=== PATIENT | male | born 1965 | race Caucasian/White ===

== ENCOUNTER 2020-10-09 21:45 | Emergency (ER) | payer OTHER, MEDICAID, SELFPAY ==
[2020-10-09] VITALS (9 sets, daily range): BP systolic 134–181; BP diastolic 78–117; PULSE 79–128; RESP 12–24; TEMP 36.8; O2SAT 96–98
--- NOTE | 2020-10-09 21:52 | DI.RAD.S_ITS ---
PROCEDURE: XR CHEST 2V INDICATIONS: shortness of breath TECHNIQUE: 2 views of the chest were acquired. COMPARISON: None. FINDINGS: Surgical changes and devices: None. Lungs and pleura: Lungs are clear. No pleural effusions or pneumothorax. Lungs are hyperinflated suggesting COPD. Mediastinum: Mediastinal contours are normal. Heart size is normal. Bones and chest wall: No suspicious bony abnormalities. Soft tissues appear unremarkable. IMPRESSION: No acute cardiopulmonary disease process. Dictated by: Marlee Vera MD, PhD on 10/09/2020 at 22:12 Approved by: Marlee Vera MD, PhD on 10/09/2020 at 22:12
[2020-10-09 22:09] LABS: Add Manual Diff / Slide Review NO; Basophils Absolute Auto 0 /uL (0-100); Basophils Percent Auto 0.8 % (0-2); Eosinophils Absolute Auto 100 /uL (0-450); Eosinophils Percent Auto 2.1 % (2-4); Hematocrit 39.6 % (41-53); Hemoglobin 13.6 g/dL (13.5-17.5); Lymphocytes Absolute Auto 1800 /uL (1100-4500); Lymphocytes Percent Auto 30.4 % (25-40); Mean Corpuscular HGB Conc 34.2 % (30-36); Mean Corpuscular Hemoglobin 31.6 PG (26-34); Mean Corpuscular Volume 92.4 fL (80-100); Monocytes Absolute Auto 800 /uL (0-900); Monocytes Percent Auto 13.8 % (3-14); Neutrophils Absolute Auto 3200 /uL (1500-7000); Neutrophils Percent Auto 52.9 % (50-75); Platelet Count 187 X10^3/uL (150-400); Red Blood Cell Count 4.29 X10^6/uL (4.5-5.9); Red Cell Distribution Width 15.9 % (11.6-14.8)
[2020-10-09 22:16] LABS: Alanine Aminotransferase 82 IU/L (<50); Albumin 4.5 g/dL (3.5-5.0); Albumin Globulin Ratio 1.3 (1.0-2.8); Alkaline Phosphatase 82 U/L (38-126); Aspartate Aminotransferase 144 IU/L (17-59); Bilirubin Total 0.4 mg/dL (0.2-1.3); Blood Urea Nitrogen 7 mg/dL (9-20); Calcium 9.1 mg/dL (8.4-10.2); Carbon Dioxide 24 mmol/L (22-32); Chloride 103 mmol/L (98-107); Estimated Glomerular Filt Rate > 60.0 mL/min (>60); Globulin 3.6 g/dL (1.7-4.1); Glucose 178 mg/dL (70-100); HEMOLYSIS < 15 (0-50); Potassium 3.5 mmol/L (3.4-5.1); Sodium 139 mmol/L (137-145); Total Protein 8.1 g/dL (6.3-8.2)
[2020-10-09 22:21] LABS: COVID19 -Nasal RAPID Negative (Negative)
[2020-10-09 22:30] LABS: Lactate (Lactic Acid) 4.5 mmol/L (0.7-2.1)
--- NOTE | 2020-10-09 22:42 | ED.SYNCOPE ---
HPI - Syncope General Chief Complaint: Syncope Stated Complaint: LITTLE SHORT OF BREATH [employer] Time Seen by Provider: 10/09/20 22:40 Source: patient Mode of arrival: Ambulatory Limitations: no limitations History of Present Illness HPI narrative: This is a 54-year-old male comes emergency department with complaint of a syncopal episode. Patient states he was at home, he had gotten up today went to the kitchen to get something the eat and he woke up on the floor. Patient did not have any anticipation was happening. This occurred about 5:00 p.m. this evening. Patient states he lives with his mother she heard him fall but she is very slow on oxygen so took a couple minutes to get to him and when he woke up she was on the phone with 911. He is unsure of the exact amount of time but suspects possibly 5 minutes or longer. Patient states he was responding normally when he woke up, his mother did not note any shaking or confusion. He has not had similar symptoms in the past. He denies headache, vision changes or dizziness. He has not had any more episodes of lightheadedness or passing out. He denies any chest pain. He did note of somewhat sudden onset of shortness of breath a week and a half ago. He does have a runny nose as well as chronic smoker's cough which is nonproductive. Occasionally has posttussive emesis with cough in the morning. Patient denies any abdominal pain. He occasionally has blood with hemorrhoids. He denies any melanotic stools. No changes with urination. No numbness, tingling or weakness. No swelling his extremities. He is on a beta-luca for mild tremor but he states it is probably because he drinks too much alcohol. He takes NSAIDs regularly and cyclobenzaprine as needed. His some chronic back pain. He did have a DVT after breaking both of his legs about 2 years ago and had repair of his left ankle as well as repair of his right lower extremity. He was on warfarin until about 6 months to a year ago after his provoked DVT. He drinks about a pt of hard liquor daily in 2 or 3 beers. His last drink was at 2:00 a.m. in the morning on the . He smokes about a 3rd pack per day. He denies any illicit or recreational drugs. His primary care is Dr. Thaddeus Hernandez. Related Data Allergies Allergy/AdvReac Type Severity Reaction Status Date / Time No Known Drug Allergies Allergy Verified 10/10/20 02:38 Review of Systems Review of Systems ROS Unobtainable: All systems reviewed & are unremarkable except as noted in HPI and below Patient History Social History Smoking Status: Current every day smoker Smoking Status: Current every day smoker Exam Narrative Exam Narrative: GEN: well nourished, well appearing male, alert and oriented x 3, patient appears to be in mild distress. HEENT: Atraumatic, pupils are equal round reactive to light, extraocular movements are intact, nares are clear, Throat is clear without any exudates, erythema, tonsillar enlargement or uvular deviation HEART: Regular rate and rhythm without murmur, clicks, rubs. No carotid bruits, pulses are equal in upper extremities LUNGS:Lungs mildly coarse bilaterally but equal with good air movement auscultation, no wheezes, rales, crackles, chest moves symmetrically, no tachypnea accessory muscle use. ABD:bowel sounds normal, soft, non-tender, no guarding, rebound, rigidity, no masses noted, no hepatosplenomegaly :No CVA tenderness MSCL: Non-tender, no muscle atrophy, muscles strength 5/5 upper and lower extremities, full range of motion, normal gait NEURO:CN 2-12 intact, sensation normal SKIN: No rash, erythema or skin changes. Initial Vital Signs Initial Vital Signs: Vital Signs Temperature 98.3 F 10/09/20 21:48 Pulse Rate 117 H 10/09/20 21:48 Respiratory Rate 22 10/09/20 21:48 Blood Pressure 156/98 H 10/09/20 21:48 Pulse Oximetry 96 10/09/20 21:48 Course Orders Ordered: Discontinued Medications Sodium Chloride (Normal Saline 0.9%) 1,000 mls @ 1,000 mls/hr IV BOLUS ONE Stop: 10/09/20 23:41 Last Infusion: 10/10/20 01:22 Dose: 0 mls/hr Documented by: Admin: 10/09/20 23:06 Dose: 1,000 mls/hr Documented by: ALETHEA Sodium Chloride (Normal Saline 0.9%) 1,000 mls @ 1,000 mls/hr IV BOLUS ONE Stop: 10/10/20 01:45 Last Infusion: 10/10/20 02:25 Dose: 0 mls/hr Documented by: Admin: 10/10/20 01:03 Dose: 1,000 mls/hr Documented by: ABENA Sodium Chloride (Normal Saline 0.9%) 1,000 mls @ 1,000 mls/hr IV BOLUS ONE Stop: 10/10/20 03:25 Last Infusion: 10/10/20 03:42 Dose: 0 mls/hr Documented by: Admin: 10/10/20 02:37 Dose: 1,000 mls/hr Documented by: LAZ Lorazepam (Lorazepam 2 Mg/Ml Inj) 1 mg IV NOW ONE Stop: 10/09/20 22:53 Last Admin: 10/09/20 23:07 Dose: 1 mg Documented by: ALETHEA Vital Signs Vital signs: Vital Signs - 8 hr 10/09/20 21:48 10/09/20 21:53 10/09/20 21:54 Temperature 98.3 F Pulse Rate 117 H 128 H Respiratory Rate 22 Blood Pressure 156/98 H 181/117 H Pulse Oximetry 96 97 97 10/09/20 22:00 10/09/20 22:08 10/09/20 22:30 Temperature Pulse Rate 108 H 117 H 93 H Respiratory Rate 19 24 12 Blood Pressure 169/104 H 162/98 H 137/83 Pulse Oximetry 98 97 97 10/09/20 23:00 10/09/20 23:13 10/09/20 23:30 Temperature Pulse Rate 98 H 96 H 79 Respiratory Rate 21 15 Blood Pressure 147/90 H 151/94 H 134/78 Pulse Oximetry 98 97 97 10/10/20 00:00 10/10/20 00:30 10/10/20 01:00 Temperature Pulse Rate 83 79 84 Respiratory Rate 19 17 17 Blood Pressure 139/83 121/79 126/86 Pulse Oximetry 98 95 95 10/10/20 01:30 10/10/20 02:00 Temperature Pulse Rate 72 79 Respiratory Rate 11 L 14 Blood Pressure 139/82 121/69 Pulse Oximetry 98 95 MDM - Syncope Lab Data Result diagrams: 10/09/20 21:57 10/09/20 21:57 Labs: Lab Results 10/09/20 10/09/20 10/09/20 Range/Units 21:57 21:57 21:57 WBC 6.0 (4.5-11.0) X10^3/uL RBC 4.29 L (4.5-5.9) X10^6/uL Hgb 13.6 (13.5-17.5) g/dL Hct 39.6 L (41-53) % MCV 92.4 (80-100) fL MCH 31.6 (26-34) PG MCHC 34.2 (30-36) % RDW 15.9 H (11.6-14.8) % Plt Count 187 (150-400) X10^3/uL Neut % (Auto) 52.9 (50-75) % Lymph % (Auto) 30.4 (25-40) % [place] % (Auto) 13.8 (3-14) % Eos % (Auto) 2.1 (2-4) % Baso % (Auto) 0.8 (0-2) % Neut # (Auto) 3200 (5250-8543) /uL Lymph # (Auto) 1800 (5991-3521) /uL [place] # (Auto) 800 (0-900) /uL Eos # (Auto) 100 (0-450) /uL Baso # (Auto) 0 (0-100) /uL PT (10.1-12.7) SECONDS INR (0.9-1.3) APTT (26.4-36.2) SECONDS Sodium 139 (137-145) mmol/L Potassium 3.5 (3.4-5.1) mmol/L Chloride 103 (98-107) mmol/L Carbon Dioxide 24 (22-32) mmol/L BUN 7 L (9-20) mg/dL Creatinine 0.54 L (0.66-1.25) mg/dL Estimated GFR > 60.0 (>60) mL/min BUN/Creatinine Ratio 13.0 (6-22) Glucose 178 H (70-100) mg/dL Lactate 4.5 H* (0.7-2.1) mmol/L Calcium 9.1 (8.4-10.2) mg/dL Total Bilirubin 0.4 (0.2-1.3) mg/dL AST 144 H (17-59) IU/L ALT 82 H (<50) IU/L Alkaline Phosphatase 82 (38-126) U/L Total Creatine Kinase (55-170) U/L CK-MB (CK-2) (<2.37) ng/mL CK-MB (CK-2) Rel Index (1.5-5.0) % Troponin I (0.01-0.034) ng/mL NT-Pro-B Natriuret Pep (<125) pg/mL Total Protein 8.1 (6.3-8.2) g/dL Albumin 4.5 (3.5-5.0) g/dL Globulin 3.6 (1.7-4.1) g/dL Albumin/Globulin Ratio 1.3 (1.0-2.8) Lipase (23-300) U/L U Opiates 300ng/mL cut (Negative) Ur Oxycodone Screen (Negative) Urine Methadone Screen (Negative) Ur Barbiturates Screen (Negative) U Tricyclic Antidepress (Negative) Ur Phencyclidine Scrn (Negative) Ur Amphetamines Screen (Negative) U Methamphetamines Scrn (Negative) Ur MDMA Scrn (Ecstasy) (Negative) U Benzodiazepines Scrn (Negative) Urine Cocaine Screen (Negative) U Marijuana (THC) Screen (Negative) Ethyl Alcohol ( - 10) mg/dL SARS-CoV-2 (PCR) (Negative) 10/09/20 10/09/20 10/09/20 Range/Units 21:57 21:57 22:00 WBC (4.5-11.0) X10^3/uL RBC (4.5-5.9) X10^6/uL Hgb (13.5-17.5) g/dL Hct (41-53) % MCV (80-100) fL MCH (26-34) PG MCHC (30-36) % RDW (11.6-14.8) % Plt Count (150-400) X10^3/uL Neut % (Auto) (50-75) % Lymph % (Auto) (25-40) % Berg[place] % (Auto) (3-14) % Eos % (Auto) (2-4) % Baso % (Auto) (0-2) % Neut # (Auto) (5993-4517) /uL Lymph # (Auto) (7781-9593) /uL Bergen # (Auto) (0-900) /uL Eos # (Auto) (0-450) /uL Baso # (Auto) (0-100) /uL PT (10.1-12.7) SECONDS INR (0.9-1.3) APTT (26.4-36.2) SECONDS Sodium (137-145) mmol/L Potassium (3.4-5.1) mmol/L Chloride (98-107) mmol/L Carbon Dioxide (22-32) mmol/L BUN (9-20) mg/dL Creatinine (0.66-1.25) mg/dL Estimated GFR (>60) mL/min BUN/Creatinine Ratio (6-22) Glucose (70-100) mg/dL Lactate (0.7-2.1) mmol/L Calcium (8.4-10.2) mg/dL Total Bilirubin (0.2-1.3) mg/dL AST (17-59) IU/L ALT (<50) IU/L Alkaline Phosphatase (38-126) U/L Total Creatine Kinase 212 H (55-170) U/L CK-MB (CK-2) 1.81 (<2.37) ng/mL CK-MB (CK-2) Rel Index 0.9 L (1.5-5.0) % Troponin I < 0.012 (0.01-0.034) ng/mL NT-Pro-B Natriuret Pep 25 (<125) pg/mL Total Protein (6.3-8.2) g/dL Albumin (3.5-5.0) g/dL Globulin (1.7-4.1) g/dL Albumin/Globulin Ratio (1.0-2.8) Lipase 296 (23-300) U/L U Opiates 300ng/mL cut (Negative) Ur Oxycodone Screen (Negative) Urine Methadone Screen (Negative) Ur Barbiturates Screen (Negative) U Tricyclic Antidepress (Negative) Ur Phencyclidine Scrn (Negative) Ur Amphetamines Screen (Negative) U Methamphetamines Scrn (Negative) Ur MDMA Scrn (Ecstasy) (Negative) U Benzodiazepines Scrn (Negative) Urine Cocaine Screen (Negative) U Marijuana (THC) Screen (Negative) Ethyl Alcohol 205 H ( - 10) mg/dL SARS-CoV-2 (PCR) Negative (Negative) 10/09/20 10/09/20 10/10/20 Range/Units 23:56 23:56 01:13 WBC (4.5-11.0) X10^3/uL RBC (4.5-5.9) X10^6/uL Hgb (13.5-17.5) g/dL Hct (41-53) % MCV (80-100) fL MCH (26-34) PG MCHC (30-36) % RDW (11.6-14.8) % Plt Count (150-400) X10^3/uL Neut % (Auto) (50-75) % Lymph % (Auto) (25-40) % Berg[place] % (Auto) (3-14) % Eos % (Auto) (2-4) % Baso % (Auto) (0-2) % Neut # (Auto) (0085-8343) /uL Lymph # (Auto) (8706-1661) /uL Berg[place] # (Auto) (0-900) /uL Eos # (Auto) (0-450) /uL Baso # (Auto) (0-100) /uL PT 9.9 L (10.1-12.7) SECONDS INR 0.9 (0.9-1.3) APTT 31 (26.4-36.2) SECONDS Sodium (137-145) mmol/L Potassium (3.4-5.1) mmol/L Chloride (98-107) mmol/L Carbon Dioxide (22-32) mmol/L BUN (9-20) mg/dL Creatinine (0.66-1.25) mg/dL Estimated GFR (>60) mL/min BUN/Creatinine Ratio (6-22) Glucose (70-100) mg/dL Lactate 2.8 H (0.7-2.1) mmol/L Calcium (8.4-10.2) mg/dL Total Bilirubin (0.2-1.3) mg/dL AST (17-59) IU/L ALT (<50) IU/L Alkaline Phosphatase (38-126) U/L Total Creatine Kinase (55-170) U/L CK-MB (CK-2) (<2.37) ng/mL CK-MB (CK-2) Rel Index (1.5-5.0) % Troponin I (0.01-0.034) ng/mL NT-Pro-B Natriuret Pep (<125) pg/mL Total Protein (6.3-8.2) g/dL Albumin (3.5-5.0) g/dL Globulin (1.7-4.1) g/dL Albumin/Globulin Ratio (1.0-2.8) Lipase (23-300) U/L U Opiates 300ng/mL cut Negative (Negative) Ur Oxycodone Screen Negative (Negative) Urine Methadone Screen Negative (Negative) Ur Barbiturates Screen Negative (Negative) U Tricyclic Antidepress Negative (Negative) Ur Phencyclidine Scrn Negative (Negative) Ur Amphetamines Screen Negative (Negative) U Methamphetamines Scrn Negative (Negative) Ur MDMA Scrn (Ecstasy) Negative (Negative) U Benzodiazepines Scrn Negative (Negative) Urine Cocaine Screen Negative (Negative) U Marijuana (THC) Screen Negative (Negative) Ethyl Alcohol ( - 10) mg/dL SARS-CoV-2 (PCR) (Negative) 10/10/20 Range/Units 02:58 WBC (4.5-11.0) X10^3/uL RBC (4.5-5.9) X10^6/uL Hgb (13.5-17.5) g/dL Hct (41-53) % MCV (80-100) fL MCH (26-34) PG MCHC (30-36) % RDW (11.6-14.8) % Plt Count (150-400) X10^3/uL Neut % (Auto) (50-75) % Lymph % (Auto) (25-40) % [place] % (Auto) (3-14) % Eos % (Auto) (2-4) % Baso % (Auto) (0-2) % Neut # (Auto) (2167-1137) /uL Lymph # (Auto) (9131-4207) /uL [place] # (Auto) (0-900) /uL Eos # (Auto) (0-450) /uL Baso # (Auto) (0-100) /uL PT (10.1-12.7) SECONDS INR (0.9-1.3) APTT (26.4-36.2) SECONDS Sodium (137-145) mmol/L Potassium (3.4-5.1) mmol/L Chloride (98-107) mmol/L Carbon Dioxide (22-32) mmol/L BUN (9-20) mg/dL Creatinine (0.66-1.25) mg/dL Estimated GFR (>60) mL/min BUN/Creatinine Ratio (6-22) Glucose (70-100) mg/dL Lactate 1.6 (0.7-2.1) mmol/L Calcium (8.4-10.2) mg/dL Total Bilirubin (0.2-1.3) mg/dL AST (17-59) IU/L ALT (<50) IU/L Alkaline Phosphatase (38-126) U/L Total Creatine Kinase (55-170) U/L CK-MB (CK-2) (<2.37) ng/mL CK-MB (CK-2) Rel Index (1.5-5.0) % Troponin I (0.01-0.034) ng/mL NT-Pro-B Natriuret Pep (<125) pg/mL Total Protein (6.3-8.2) g/dL Albumin (3.5-5.0) g/dL Globulin (1.7-4.1) g/dL Albumin/Globulin Ratio (1.0-2.8) Lipase (23-300) U/L U Opiates 300ng/mL cut (Negative) Ur Oxycodone Screen (Negative) Urine Methadone Screen (Negative) Ur Barbiturates Screen (Negative) U Tricyclic Antidepress (Negative) Ur Phencyclidine Scrn (Negative) Ur Amphetamines Screen (Negative) U Methamphetamines Scrn (Negative) Ur MDMA Scrn (Ecstasy) (Negative) U Benzodiazepines Scrn (Negative) Urine Cocaine Screen (Negative) U Marijuana (THC) Screen (Negative) Ethyl Alcohol ( - 10) mg/dL SARS-CoV-2 (PCR) (Negative) Imaging Data Chest x-ray: Radiologist's Impression: [address] [id number] ReportSigned Patient: Jason Vasquez [facility] [place]#: [id number]: 1965Acct:[id number]/Sex: 54 / MDate of Service: 10/09/20Loc: EDAccession Number: [id number] Procedure: XR chest 2V Ordering Provider: Funmi Massey D.O. PROCEDURE: XR CHEST 2V INDICATIONS: shortness of breath TECHNIQUE: 2 views of the chest were acquired. COMPARISON: None. FINDINGS: Surgical changes and devices: None. Lungs and pleura: Lungs are clear. No pleural effusions or pneumothorax. Lungs are hyperinflated suggesting COPD. Mediastinum: Mediastinal contours are normal. Heart size is normal. Bones and chest wall: No suspicious bony abnormalities. Soft tissues appear unremarkable. IMPRESSION: No acute cardiopulmonary disease process. Dictated by: Marlee Vera MD, PhD on 10/09/2020 at 22:12 Approved by: Marlee Vera MD, PhD on 10/09/2020 at 22:12 CT scan - chest: Radiologist's Impression: Jason Vasquez 54 M [address] [id number] Scan ReportSigned Patient: Jason Vasquez [facility]#: [id number]: 1965Acct:[id number]/Sex: 54 / MDate of Service: 10/09/20Loc: EDAccession Number: [id number] Procedure: CT angio chest PE protocol Ordering Provider: Funmi Massey D.O. PROCEDURE: CT ANGIO CHEST PE PROTOCOL INDICATIONS: syncope, sob, etoh abuse. hx dvt 2 yrs ago after broken leg. TECHNIQUE: After the administration of intravenous contrast, 2 mm thick sections acquired from the pulmonary apices to the posterior costophrenic angles. 3-dimensional maximum intensity projection (MIP) coronal and sagittal reformats were then acquired through the thorax. For radiation dose reduction, the following was used: automated exposure control, adjustment of mA and/or kV according to patient size. COMPARISON: None. FINDINGS: Image quality: Excellent. Pulmonary arteries: Pulmonary arteries are normal in size, and demonstrate no intraluminal filling defects to suggest central pulmonary embolism. Lungs and pleura: Lungs are clear. No pleural effusions or pneumothorax. Central and peripheral airways are patent. Mediastinum: Heart size is normal, without pericardial effusion. No mediastinal or hilar adenopathy. Thoracic aorta is normal in caliber and enhancement. Esophagus is normal in caliber, without hiatal hernia. Bones and chest wall: No suspicious bony lesions. Ribs and thoracic spine appear intact throughout. No axillary or supraclavicular adenopathy. Abdomen: Diffuse fatty infiltration liver. Partially visualized 2.1 centimeter low-density lesion adjacent to the anterior margin of the body of the pancreas. IMPRESSION: 1. No pulmonary embolus. 2. No lung consolidation or pleural effusions. 3. Hepatic steatosis. 4. Partially visualized 2.1 centimeter cystic lesion adjacent to the anterior margin of the pancreas. Represent pseudocyst or cystic neoplasm. Recommend dedicated CT scan of the abdomen with and without contrast (pancreatic protocol) when clinically feasible. Dictated by: Marlee Vera MD, PhD on 10/09/2020 at 23:18 Approved by: Marlee Vera MD, PhD on 10/09/2020 at 23:23 CT scan - head: Radiologist's Impression: Jason Vasquez 54 M [address] [id number] Scan ReportSigned Patient: Jason Vasquez [facility]#: [id number]: 1965Acct:[id number]/Sex: 54 / MDate of Service: 10/09/20Loc: EDAccession Number: [id number] Procedure: CT head/brain wo con Ordering Provider: Funmi Massey D.O. PROCEDURE: CT HEAD/BRAIN WO CON INDICATIONS: syncope, sob, etoh abuse. hx dvt 2 yrs ago after broken leg. TECHNIQUE: Noncontrast 4.5 mm thick angled axial sections acquired from the foramen magnum to the vertex, with coronal and sagittal reformats. For radiation dose reduction, the following was used: automated exposure control, adjustment of mA and/or kV according to patient size. COMPARISON: None. FINDINGS: Image quality: Excellent. CSF spaces: Basal cisterns are patent. No extra-axial fluid collections. The ventricles are symmetric in size and shape. Brain: No intracranial bleeds or masses. There is cerebral volume loss for age, with resultant ventricular and sulcal prominence. There are periventricular and deep white matter chronic small vessel ischemic changes. Skull and face: Calvarium and visualized facial bones appear intact, without suspicious lesions. Sinuses: Mild mucosal thickening in the visualized maxillary sinuses. The mastoids are clear. IMPRESSION: No acute intracranial disease process. Dictated by: Marlee Vera MD, PhD on 10/09/2020 at 23:17 Approved by: Marlee Vera MD, PhD on 10/09/2020 at 23:18 ECG Data Attestation: I personally reviewed and interpreted this ECG as follows: Interpretation: Sinus tachycardia rate of 104 UT 148 QRS 86 and QTC of 436. Nonspecific change. MDM Narrative Medical decision making narrative: This is a 54-year-old male comes in with complaint of single syncopal episode. Patient has multiple potential causes but also appears to be somewhat alcohol withdrawal. He does have an elevated lactate and was initially tachycardic with a sinus tachycardia. He is not hypotensive or hypoxic does have a provoked DVT 2 years ago after breaking his legs, he does have risk factors being on tobacco as well. For comparison has a lactate of 4.5 in the setting of normal renal function, electrolytes and CBC. Patient's abdominal labs show an AST ALT that is slightly elevated,, troponin is negative. Patient's UDS is negative, ETOH is 205. With a negative COVID swab. Head CT is negative, chest x-ray in the setting of syncope with sinus tachycardia and a prior provoked PE patient had CT angiography which was negative for pulmonary emboli. It did note a change of the pancreas which was not completely visualized. Patient lactate normalized over time with fluids and he felt much more comfortable given a dose of Ativan. Patient would like to return home at this time. He is aware that he needs to follow to evaluate the mass to make sure that is not potentially something malignant. Patient does not have any questions or concerns at this time. Discharge Plan Departure Patient Disposition: Home Clinical Impression: Syncope, Lesion of pancreas Instructions: DI for Syncope in Adults (Fainting) Activity Restrictions/Additional Instructions: Follow up with your physician in the nest 24-[address] scan did show a partially visualized cystic lesion on the edge of her pancreas. It is recommended that you have a dedicated CT scan of the abdomen with and without contrast, pancreatic protocol as an outpatient to evaluate for mass. Discuss with your physician as soon as you can to do this. Please return for fevers, lightheadedness or passing out, headaches, new chest pain or shortness of breath, persistent vomiting, abdominal pain, black or bloody stools or other new or concerning symptoms.
--- NOTE | 2020-10-09 22:52 | DI.CT.S_ITS ---
PROCEDURE: CT ANGIO CHEST PE PROTOCOL INDICATIONS: syncope, sob, etoh abuse. hx dvt 2 yrs ago after broken leg. TECHNIQUE: After the administration of intravenous contrast, 2 mm thick sections acquired from the pulmonary apices to the posterior costophrenic angles. 3-dimensional maximum intensity projection (MIP) coronal and sagittal reformats were then acquired through the thorax. For radiation dose reduction, the following was used: automated exposure control, adjustment of mA and/or kV according to patient size. COMPARISON: None. FINDINGS: Image quality: Excellent. Pulmonary arteries: Pulmonary arteries are normal in size, and demonstrate no intraluminal filling defects to suggest central pulmonary embolism. Lungs and pleura: Lungs are clear. No pleural effusions or pneumothorax. Central and peripheral airways are patent. Mediastinum: Heart size is normal, without pericardial effusion. No mediastinal or hilar adenopathy. Thoracic aorta is normal in caliber and enhancement. Esophagus is normal in caliber, without hiatal hernia. Bones and chest wall: No suspicious bony lesions. Ribs and thoracic spine appear intact throughout. No axillary or supraclavicular adenopathy. Abdomen: Diffuse fatty infiltration liver. Partially visualized 2.1 centimeter low-density lesion adjacent to the anterior margin of the body of the pancreas. IMPRESSION: 1. No pulmonary embolus. 2. No lung consolidation or pleural effusions. 3. Hepatic steatosis. 4. Partially visualized 2.1 centimeter cystic lesion adjacent to the anterior margin of the pancreas. Represent pseudocyst or cystic neoplasm. Recommend dedicated CT scan of the abdomen with and without contrast (pancreatic protocol) when clinically feasible. Dictated by: Marlee Vera MD, PhD on 10/09/2020 at 23:18 Approved by: Marlee Vera MD, PhD on 10/09/2020 at 23:23
--- NOTE | 2020-10-09 22:52 | DI.CT.S_ITS ---
PROCEDURE: CT HEAD/BRAIN WO CON INDICATIONS: syncope, sob, etoh abuse. hx dvt 2 yrs ago after broken leg. TECHNIQUE: Noncontrast 4.5 mm thick angled axial sections acquired from the foramen magnum to the vertex, with coronal and sagittal reformats. For radiation dose reduction, the following was used: automated exposure control, adjustment of mA and/or kV according to patient size. COMPARISON: None. FINDINGS: Image quality: Excellent. CSF spaces: Basal cisterns are patent. No extra-axial fluid collections. The ventricles are symmetric in size and shape. Brain: No intracranial bleeds or masses. There is cerebral volume loss for age, with resultant ventricular and sulcal prominence. There are periventricular and deep white matter chronic small vessel ischemic changes. Skull and face: Calvarium and visualized facial bones appear intact, without suspicious lesions. Sinuses: Mild mucosal thickening in the visualized maxillary sinuses. The mastoids are clear. IMPRESSION: No acute intracranial disease process. Dictated by: Marlee Vera MD, PhD on 10/09/2020 at 23:17 Approved by: Marlee Vera MD, PhD on 10/09/2020 at 23:18
[2020-10-09 23:05] LABS: Ethanol (ETOH) 205 mg/dL; Lipase 296 U/L (23-300)
[2020-10-09] MEDS: SODIUM CHLORIDE 0.9% 1,000 ML 1000 ML IV (23:06)
[2020-10-09] MEDS: LORazepam 2 MG/ML INJ 1 MG IV (23:07)
[2020-10-09 23:17] LABS: Creatine Kinase 212 U/L (55-170)
[2020-10-09 23:30] LABS: NT-proBNP (BNP-Adult 18+) 25 pg/mL (<125); Troponin I < 0.012 ng/mL (0.01-0.034)
[2020-10-09 23:33] LABS: CKMB % Relative Index 0.9 % (1.5-5.0); Creatine Kinase MB 1.81 ng/mL (<2.37)
[2020-10-10] VITALS (10 sets, daily range): BP systolic 121–139; BP diastolic 63–86; PULSE 72–84; RESP 10–19; O2SAT 95–99
[2020-10-10] LABS: Reflexed Lactate in 2 Hours Y
[2020-10-10 00:16] LABS: INR 0.9 (0.9-1.3); Prothrombin Time 9.9 SECONDS (10.1-12.7)
[2020-10-10 00:19] LABS: Lactate 2HR (Lactic Acid Rflx) 2.8 mmol/L (0.7-2.1); PTT Partial Thromboplastin Tim 31 SECONDS (26.4-36.2)
[2020-10-10] MEDS: SODIUM CHLORIDE 0.9% 1,000 ML 1000 ML IV ×2 (01:03→02:37)
[2020-10-10 01:22] LABS: UR Morphine/Opiate cutoff 300 Negative (Negative); Ur Creatinine Normal (Normal); Ur Specific Gravity Normal (Normal); Urine Amphetamines Negative (Negative); Urine Barbiturates Negative (Negative); Urine Benzodiazepines Negative (Negative); Urine Cocaine Negative (Negative); Urine MDMA Negative (Negative); Urine Methadone Negative (Negative); Urine Methamphetamines Negative (Negative); Urine Oxycodone Negative (Negative); Urine Phencyclidine Negative (Negative); Urine Tetrahydrocannabinol Negative (Negative); Urine Tricyclic Antidepressant Negative (Negative); Urine pH Normal (Normal)
[2020-10-10 03:19] LABS: Lactate (Lactic Acid) 1.6 mmol/L (0.7-2.1)
== END 2020-10-10 05:20 | disposition home or self-care (01) ==
PROVIDERS: Emergency Provider Emergency Medicine; Family Provider Family Medicine
DX: R55 Syncope and collapse (principal); K86.9 Disease of pancreas, unspecified; R06.02 Shortness of breath; Z20.822 Contact with and (suspected) exposure to COVID-19
CPT/HCPCS: 36415; 70450; 71046; 71275; 80053; 80305; 80320; 82550; 82553; 83605; 83690; 83880; 84484; 85025; 85610; 85730; 87635; 93005; 96361; 96374; 99284; C9803; J2060; Q9967

== ENCOUNTER 2023-12-20 09:30 | Day surgery (SDC) | payer MEDICARE, SELFPAY ==
--- NOTE | 2023-12-20 | PATH_ITS ---
[facility] Accession Number: [id number] No. of containers..01 Tissue . 01 Material submitted: . rectum - RECTAL TUMOR . 01 Diagnosis: RECTAL TUMOR: Tubulovillous adenoma. No high-grade dysplasia or malignancy identified. See comment. . Specimen Comments: Due to piecemeal sampling it is not possible to assess the margin status of this sample. Clinical correlation is needed to evaluate the completeness of removal of the lesion. STO 12/25/2023 1128 Local . 01 Electronically signed: . Shashi Whitman MD, Pathologist NPI- [id number] . 01 Gross description: . Received in formalin with two patient identifiers and rectal tumor, are multiple ojeda to brown, friable soft tissue fragments aggregating to 6.3 x 5.6 x 1.8 cm. The larger fragments are sectioned, and the specimen is filtered and submitted entirely in cassettes A1 through A8. ([id number]) /MRV 12/25/20238 Local . 01 Pathologist provided ICD-10: D12.8 . 01 CPT . 438068 Specimen Comment: A courtesy copy of this report has been sent to [phone] Performed at: [address] [facility] [facility], [place], [place] [id number] MD Shashi Whitman MD Phone: [phone]
[2023-12-20 10:19] VITALS: BP 153/93; PULSE 106; RESP 17; TEMP 36.2; O2SAT 100
--- NOTE | 2023-12-20 11:01 | P.HP_ITS ---
History of Present Illness History of Present Illness Date Patient Seen: 12/20/23 Time Patient Seen: 11:01 Chief complaint: Colonoscopy Narrative: Jason is a 50-year-old man with rectal bleeding. He believes he has a prolapsing hemorrhoid. [facility] Medical History (Updated 11/19/23 @ 15:08 by Brenden Morris MD) Muscle spasms of both lower extremities Anxiety Tremor of both hands Hypertension Alcohol abuse Syncope and collapse Social History Smoking Status: Current every day smoker alcohol intake: current Meds Home Medications and Allergies Home Medications Medication Instructions Recorded Confirmed Type albuterol sulfate 90 mcg/actuation 2 puff inhalation Q6H PRN asthma 11/19/23 12/20/23 History aerosol inhaler cyclobenzaprine 10 mg tablet 10 mg PO TID PRN Shortness Of 11/19/23 12/20/23 History Breath hydroxyzine HCl 25 mg tablet 25 mg PO QID PRN hives 11/19/23 12/20/23 History meloxicam 15 mg tablet 15 mg PO DAILY 11/19/23 12/20/23 History metoprolol succinate 50 mg 50 mg PO DAILY 11/19/23 12/20/23 History tablet,extended release 24 hr naltrexone 50 mg tablet 50 mg PO DAILY 11/19/23 12/20/23 History potassium chloride 10 mEq 20 meq PO BID 11/19/23 12/20/23 History tablet,extended release Allergies Allergy/AdvReac Type Severity Reaction Status Date / Time No Known Drug Allergies Allergy Verified 11/19/23 14:47 Exam Vital Signs (past 8 hours): - 12/20/23 10:19 Temperature 97.2 F L Pulse Rate 106 H Respiratory Rate 17 Blood Pressure 153/93 H Pulse Oximetry 100 Oxygen Delivery Method Room Air Oxygen Delivery Method Room Air Const General: healthy appearing Assessment & Plan Assessment and plan (1) Rectal bleeding: Status: Acute Plan Colonoscopy, possible rubber-band ligation hemorrhoids Time-Based Coding :: [TOTAL MINUTES] spent with patient and on the chart (including review of chart, obtaining history, exam, reviewing outside data, placing orders, documenting exam and treatment plan, and counseling patient) on [DATE].
[2023-12-20 11:47] VITALS: BP 99/74; PULSE 83; RESP 16; TEMP 36.7; O2SAT 97
[2023-12-20 11:48] VITALS: BP 99/74; PULSE 86; RESP 16; TEMP 36.7; O2SAT 100
[2023-12-20 11:52] VITALS: BP 102/75; PULSE 86; RESP 16; O2SAT 100
--- NOTE | 2023-12-20 11:52 | PM.OP.COLON ---
Operative Date/Time/Diagnoses Date of procedure: 12/20/23 Time of procedure: 11:52 Pre-op diagnosis: Rectal bleeding Post-op diagnosis: same Procedure & Clinicians Study performed: Colonoscopy Same procedure as scheduled: Yes Surgeon: Brenden Morris Procedure Notes Procedure in detail: Surgeon: Brenden Morris MD Anesthesia: Iraida Landers CRNA Procedure: The patient was brought to the endoscopy suite, placed in left lateral decubitus position. The patient was connected to monitoring devices. A time-out was performed. Sedation was administered. Once the patient was adequately sedated, a digital rectal exam was performed. There was a thrombosed external hemorrhoid. The scope was then inserted and advanced to the cecum which was identified by the ileocecal valve. Prep was inadequate to visualize the appendiceal orifice. Irrigation and suction were used as much as possible to clear the colon but it could not be completely cleared out. There was no obvious large mass in the proximal colon. The scope was slowly withdrawn. There was a large mass on a stalk in the distal rectum. Multiple biopsies were taken with a 20 mm hot snare. Proximally 50% of the mass was removed which filled 1 entire specimen container. The lesion appeared to be on a stalk and did not appear to be fixed to the rectal wall. The patient was awakened and brought to recovery. Scope withdrawal time: 28 minutes Sedation time: 33 minutes EBL: 10 mL Findings: Large polypoid mass on a stalk emanating from the distal rectum, external hemorrhoid Post-procedure Disposition: PACU
[2023-12-20 11:57] VITALS: BP 115/87; PULSE 74; RESP 16; O2SAT 100
[2023-12-20 12:01] VITALS: BP 121/80; PULSE 72; RESP 16; O2SAT 100
== END 2023-12-20 12:30 | disposition home or self-care (01) ==
PROVIDERS: Family Provider Family Medicine; PCP Family Medicine; Referring Provider Surgery; Visit Provider Surgery
PROC: 0DJD8ZZ Inspection of Lower Intestinal Tract, Via Natural or Artificial Opening Endoscopic (ICD-10-PCS; CPT 45378; principal; 2023-12-20 11:00)
DX: K62.5 Hemorrhage of anus and rectum (principal); K64.4 Residual hemorrhoidal skin tags; D12.8 Benign neoplasm of rectum
CPT/HCPCS: 45385; J2704